=== PATIENT | male | born 1960 | race Caucasian/White ===

== ENCOUNTER 2016-11-04 20:05 | Emergency (ER) | payer OTHER ==
[2016-11-04 20:31] LABS: BASOPHIL 0.9 % (0-2); EOSINOPHIL 3.4 % (0-5); HCT 42.9 % (42.0-52.0); HGB 14.9 g/dl (13.2-18.0); LYMPHOCYTE 33.2 % (15-48); MCH 31.2 pg (25.0-31.0); MCHC 34.7 g/dL (32.0-36.0); MCV 89.7 fL (78.0-100.0); MONOCYTE 9.4 % (0-12); NEUTROPHIL 53.1 % (41-80); PLT 304 K/uL (150-400); RBC 4.78 M/uL (4.70-6.00); RDW 12.3 % (11.5-14.0); WBC 9.6 K/uL (4.0-10.5)
[2016-11-04 20:40] LABS: INR 0.98 (0.9-1.2); PROTHROMBIN TIME 12.6 SECONDS (11.7-14.0)
[2016-11-04 20:41] LABS: D-DIMER 0.94 ug/mLFEU (0.00-0.41)
[2016-11-04 20:50] LABS: ALBUMIN 4.4 g/dL (3.5-5.0); BILIRUBIN - TOTAL 0.2 mg/dL (0.1-1.0); CKMB 4.26 ng/mL (0.97-4.94); CREATININE 0.8 mg/dL (0.7-1.2); GLOBULIN (CALCULATION) 2.5 g/dL (2.2-4.2); MAGNESIUM 1.7 mg/dL (1.40-2.10); MYOGLOBIN 28 ng/mL (26-65); POTASSIUM 3.7 mmol/L (3.5-5.1); PRO-BNP 5 pg/mL (0-125); TOTAL PROTEIN 6.9 g/dL (6.4-8.3); TROPONIN T < 0.010 ng/mL
== END 2016-11-05 00:49 | disposition home or self-care (01) ==
LOC: FER 20:05
PROVIDERS: Emergency Medicine
DX: R10.13 Epigastric pain (principal); R06.02 Shortness of breath; R42 Dizziness and giddiness; Z88.0 Allergy status to penicillin; F17.210 Nicotine dependence, cigarettes, uncomplicated; Z82.49 Family history of ischemic heart disease and other diseases of the circulatory system; Z98.890 Other specified postprocedural states
CPT/HCPCS: 36415; 71010; 80053; 82150; 82550; 82553; 83690; 83735; 83874; 83880; 84484; 85025; 85379; 85610; 85730; 93005; J1170; J2405; Q9967

== ENCOUNTER → 2016-11-20 | Day surgery (SDC) | payer OTHER | END | disposition home or self-care (01) | LOC: FAS 06:28 | DX: K80.10 Calculus of gallbladder with chronic cholecystitis without obstruction (principal); K21.9 Gastro-esophageal reflux disease without esophagitis; M19.90 Unspecified osteoarthritis, unspecified site; F17.210 Nicotine dependence, cigarettes, uncomplicated; Z90.89 Acquired absence of other organs; Z88.0 Allergy status to penicillin; Z82.49 Family history of ischemic heart disease and other diseases of the circulatory system; Z87.442 Personal history of urinary calculi; Z79.899 Other long term (current) drug therapy | CPT/HCPCS: 88304; J1100; J1170; J2405; J2704; J2710; J3010 ==

== ENCOUNTER 2022-02-01 17:35 | Emergency (ER) | payer OTHER ==
[2022-02-01 19:30] LABS: BASOPHIL 0.9 % (0-2); EOSINOPHIL 1.6 % (0-5); HCT 47.3 % (42.0-52.0); HGB 15.5 g/dl (13.2-18.0); LYMPHOCYTE 26.1 % (15-48); MCH 30.2 pg (25.0-31.0); MCHC 32.8 g/dL (32.0-36.0); MONOCYTE 10.3 % (0-12); MPV 10.7 fL (6.0-9.5); NEUTROPHIL 60.6 % (41-80); NRBC 0; PLT 296 K/uL (150-400); RBC 5.14 M/uL (4.70-6.00); RDW 12.2 % (11.5-14.0); WBC 9.6 K/uL (4.0-10.5)
[2022-02-01 19:55] LABS: ALBUMIN 3.6 g/dL (3.4-5.0); BILIRUBIN - TOTAL 0.4 mg/dL (0.2-1.0); BUN/CREAT RATIO (CALC) 12.9 RATIO; CREATININE 0.7 mg/dL (0.67-1.17); GLOBULIN (CALCULATION) 3.4 g/dL; POTASSIUM 4.1 mmol/L (3.5-5.1)
[2022-02-01] MEDS ORDERED: METRONIDAZOLE500 MG PO (21:55)
[2022-02-01] MEDS ORDERED: ONDANSETRON HCL4 MG PO (21:55)
[2022-02-01] MEDS ORDERED: CIPRO500 MG PO (21:55)
[2022-02-01] MEDS ORDERED: BENTYL10 MG PO (21:55)
[2022-02-01 21:56] LABS: BILIRUBIN NEGATIVE (NEGATIVE); BLOOD NEGATIVE Ery/uL (NEGATIVE); CLARITY CLEAR (CLEAR); COLOR YELLOW (YELLOW); GLUCOSE (U) NORMAL (NORMAL); LEUKOCYTES NEGATIVE Leu/uL (NEGATIVE); NITRITE NEGATIVE (NEGATIVE); PROTEIN NEGATIVE (NEGATIVE); UROBILINOGEN 0.2 mg/dL (0.2-1.0); pH 6.5 (5.0-9.0)
== END 2022-02-01 22:58 | disposition home or self-care (01) ==
LOC: FER 17:35
PROVIDERS: Nurse Practitioner Family
DX: K57.32 Diverticulitis of large intestine without perforation or abscess without bleeding (principal); J44.9 Chronic obstructive pulmonary disease, unspecified; Z88.0 Allergy status to penicillin; Z87.891 Personal history of nicotine dependence
CPT/HCPCS: 36415; 80053; 81003; 85025; J1885; J2405; J7030; Q9967